=== PATIENT | female | born 1980 | race Two or more races ===

== ENCOUNTER 2017-01-01 09:30 | Inpatient (IN) | payer OTHER ==
--- NOTE | ~2017-01-01 | DS ---
Unit #: [id number] #: [id number] Patient: MICHAEL BERGMAN [id number] [address] [address] [id number] I MR#: [id number] NAME: MICHAEL BERGMAN ROOM: 472 Age: 36 Sex: F Admission Date: 01/01/2017 : 1980 Discharge Date: 01/04/2017 Attending Physician: Navneet Jasso M.D. Primary Care Physician: Kaylah Medina M.D. DISCHARGE SUMMARY DISCHARGE DIAGNOSIS Right flank and back pain with possible urinary tract infection. OPERATIVE PROCEDURE None. DISCHARGE MEDICATIONS Home medications plus Augmentin 875 mg one p.o. b.i.d. HISTORY OF PRESENT ILLNESS/HOSPITAL COURSE This is a 36-year-old black female with a history of right flank pain and right back pain radiating actually into the patient's right lower quadrant. She did have some nausea and vomiting initially but no jaundice. CT scan showed some gallstones but no evidence of cholecystitis. The patient was admitted, underwent HIDA biliary scan which was normal with no evidence of acute cholecystitis. Urology saw the patient because it felt like that she could possibly have urinary tract infection due to her back pain. Urinalysis and C and S were obtained but the final results have not come in except it did show some white blood cells in the urine. The patient has gotten better on IV antibiotics. A repeat CT scan with contrast did not show any evidence of any significant renal disease or GI disease at present. Patient at this time is improved on IV antibiotics. She is tolerating a regular diet. She will be discharged to be followed in the office on an as needed basis. I will wait upon discharge until the urologist to see the patient for further instructions. Dictated by... Karlee Chris/whitley TD: 01/05/2017 11:08 JOB #: [id number] Unit #: [id number] #: [id number] Patient: MICHAEL BERGMAN DISCHARGE SUMMARY Page 1 of 1 X Eduardo Lucas MD X DISCHARGE SUMMARY
--- NOTE | ~2017-01-01 | NM21 ---
[facility] A Service of [facility] RADIOLOGY TEXT RESULTS PATIENT: MICHAEL BERGMAN LOCATION: [place] [address]- : [birth year] UNIT #: [id number] AGE: [address]: Navneet Jasso MD SEX: F ORDER DR: [id number] [facility] [address] [place], [place] [address] [id number] I MR#: [id number] Acc #: [id number] NAME: MICHAEL BERGMAN : 1980 SEX: F STUDY DATE/TIME: 01/01/2017 12:42 UNIT: [facility] ROOM: [facility] STUDY DESCRIPTION: NM Hepatobiliary W GB Attending Physician: Navneet Jasso M.D. Ordering Physician: Navneet Jasso M.D. Primary Care Physician: Kaylah Medina M.D. MEDICAL IMAGING REPORT This report is preliminary unless electronic signature is present EXAM Hepatobiliary study HISTORY Back pain, right upper quadrant pain for a month which is worsening with nausea and vomiting. FINDINGS Patient was given 6.89 mCi of Tc 99m Choletec. There is prompt visualization of the gallbladder liver and small bowel and study was stopped at 60 minutes. IMPRESSION Normal hepatobiliary study. Dictated by... Ezra Luna M.D. THIS IS AN ELECTRONICALLY VERIFIED REPORT Ezra Luna M.D. at 01/01/2017 3:55 PM LARRY/stas TD: 01/01/2017 14:38 JOB #: [id number] MEDICAL IMAGING REPORT Page 1 of 1 COPY
--- NOTE | ~2017-01-01 | CT2 ---
[facility] A Service of [facility] RADIOLOGY TEXT RESULTS PATIENT: MICHAEL BERGMAN LOCATION: [facility]10-03 : [birth year] UNIT #: [id number] AGE: [address]: Navneet Jasso MD SEX: F ORDER DR: [id number] [facility] [address] [facility] [place], [place] [address] [id number] I MR#: [id number] Acc #: [id number] NAME: MICHAEL BERGMAN : 1980 SEX: F STUDY DATE/TIME: 01/02/2017 11:42 UNIT: [facility] ROOM: [facility] STUDY DESCRIPTION: CT Abd and Pelv W Cont Attending Physician: Navneet Jasso M.D. Ordering Physician: Kleber Roe III, M.D. Primary Care Physician: Kaylah Medina M.D. MEDICAL IMAGING REPORT This report is preliminary unless electronic signature is present EXAM CT abdomen and pelvis with contrast. INDICATIONS Right flank pain for the past 5-6 days with fever. PROCEDURE Contrast-enhanced CT of the abdomen and pelvis. COMPARISON 12/27/[address] exam was performed with one or more of the following radiation dose reduction techniques: automatic exposure control, adjustment of mA and/or kV according to patient size, and iterative reconstruction. FINDINGS Included lung bases are clear. The liver, spleen, kidneys, adrenal gland, pancreas unremarkable. There is a 5 mm calculus in the gallbladder. No evidence for active inflammation. The bowel loops are nondilated. There is moderate colonic stool burden. Appendix is nondilated. PELVIS WITH CONTRAST: No pelvic mass or fluid. No aggressive appearing bone lesion. IMPRESSION No definite acute findings. Cholelithiasis. No definite CT evidence for active inflammation. If there is ongoing concern for acute cholecystitis or right upper quadrant [facility] A Service [facility] RADIOLOGY TEXT RESULTS PATIENT: MICHAEL BERGMAN LOCATION: [facility] : [birth year] UNIT #: [id number] AGE: [address]: Navneet Jasso MD SEX: F ORDER DR: ultrasound may be helpful. Moderate colonic stool burden. Dictated by... Dm Abarca M.D. THIS IS AN ELECTRONICALLY VERIFIED REPORT Dm Abarca M.D. at 01/03/2017 7:23 AM JUAN MIGUEL/cristi TD: 01/02/2017 15:09 JOB #: [id number] MEDICAL IMAGING REPORT Page 1 of 1 COPY
--- NOTE | ~2017-01-01 | CO ---
Unit #: [id number] #: [id number] Patient: MICHAEL BERGMAN [id number] [address] [place], [place] [address] [id number] I MR#: [id number] NAME: MICHAEL BERGMAN ROOM: 472 Age: 36 Sex: F Admission Date: 01/01/2017 : 1980 Attending Physician: Navneet Jasso M.D. Primary Care Physician: Kaylah Medina M.D. Consultation Date: 01/01/2017 CONSULTATION REPORT REASON FOR CONSULTATION Right flank pain. HISTORY OF PRESENT ILLNESS The patient is a 36-year-old female who has a 5-6 day history of right flank pain. She states the severity is 10 out of 10. Nothing relieves the pain. It is associated with nausea and vomiting as well as fever to 102 per the patient's report. It is associated with nausea and vomiting as well as a fever to 102 per the patient's report. She denies gross hematuria. She denies dysuria. She was admitted directly from Dr. Jasso's office for further management. PAST MEDICAL HISTORY Hypertension. PAST SURGICAL HISTORY None. ALLERGIES No known drug allergies. HOME MEDICATIONS Amlodipine. REVIEW OF SYSTEMS A 12-point review of systems was performed and was positive for headaches, nausea, vomiting and fevers. PHYSICAL EXAMINATION GENERAL: Well-developed female in no acute distress. VITALS: Temperature reported at home was 102, temperature here is 98.2. Vital signs stable. HEENT: Normocephalic, atraumatic. NECK: Supple. No lymphadenopathy. LUNGS: The patient has normal inspiratory rise. She is breathing without difficulty. HEART: Regular rate and rhythm. Radial pulses are 2+ bilaterally. ABDOMEN: Soft and nondistended. There is right CVA tenderness. There is no rebound. There is no guarding. EXTREMITIES: She has no clubbing, cyanosis or edema. MUSCULOSKELETAL: She is moving all extremities well. NEUROLOGIC: She is alert and oriented times four. DIAGNOSTIC STUDIES Unit #: [id number] #: [id number] Patient: MICHAEL BERGMAN IMAGING: Noncontrasted CT scan of the abdomen and pelvis from 12/27/2016 was independently reviewed. There is chololithiasis. There is no hydronephrosis. There is no nephrolithiasis. LABORATORY: Pending. ASSESSMENT Right flank pain. PLAN We will check a urinalysis and a urine culture. We will follow along with workup for cholecystitis as well. We appreciate the opportunity to participate in her care. Dictated by... Rogelio Mendiola M.D. RACHELE/gz TD: 01/01/2017 14:03 JOB #: [id number] CONSULTATION REPORT Page 1 of 1 X Rogelio Mendiola MD X CONSULTATION REPORT
--- NOTE | ~2017-01-01 | US6 ---
[facility] A Service of [facility] & [facility] RADIOLOGY TEXT RESULTS PATIENT: MICHAEL BERGMAN LOCATION: [facility] 472-01 : [birth year] UNIT #: [id number] AGE: [address]: Navneet Jasso MD SEX: F ORDER DR: [id number] [facility] [address] [facility] [address]. [place], [place] [address] [id number] I MR#: [id number] Acc #: [id number] NAME: MICHAEL BERGMAN : 1980 SEX: F STUDY DATE/TIME: 01/01/2017 12:02 UNIT: [facility] ROOM: [facility] STUDY DESCRIPTION: US Abdominal Limited Attending Physician: Navneet Jasso M.D. Ordering Physician: Navneet Jasso M.D. Primary Care Physician: Kaylah Medina M.D. MEDICAL IMAGING REPORT This report is preliminary unless electronic signature is present EXAM Right upper quadrant ultrasound. HISTORY Abdominal pain. Abdominal pain and nausea and vomiting for 1 month. TECHNIQUE Real time ultrasonography of the right upper quadrant performed. COMPARISON CT abdomen and pelvis 12/27/2016. FINDINGS Pancreas unremarkable in visualized extent. Some portions of pancreatic tail obscured by bowel gas artifact. Pancreas appeared normal on prior CT. The liver measures 13.4 cm in craniocaudal extent. It is normal in size, contour, and echotexture. Portal vein is patent. The hepatic veins and inferior vena cava appear grossly patent. Gallbladder is not pathologically dilated. Shadowing gallstones are present. No pericholecystic fluid or gallbladder wall thickening. Gallbladder wall measures about 1.6 mm in thickness. No intra or extrahepatic biliary ductal dilatation. Common bile duct measures about 1.3 mm in diameter. Right kidney measures 12.2 cm in greatest length. No hydronephrosis or nephrolithiasis. No cystic or solid mass lesion. No perinephric fluid collection. IMPRESSION 1. Nonobstructing gallstones in otherwise unremarkable gallbladder. No sonographic findings of cholecystitis. 2. Liver normal in appearance. 3. No biliary ductal dilatation. 4. Right kidney normal in appearance. 5. Visualized pancreas unremarkable. Some portions obscured by bowel STS. [facility] A Service of [facility] & [facility] RADIOLOGY TEXT RESULTS PATIENT: MICHAEL BERGMAN LOCATION: [facility] 472-01 : [birth year] UNIT #: [id number] AGE: [address]: Navneet Jasso MD SEX: F ORDER DR: gas artifact. Pancreas appeared normal on CT examination December 27, 2016. Dictated by... Jhonny Rodriguez M.D. THIS IS AN ELECTRONICALLY VERIFIED REPORT Jhonny Rodriguez M.D. at 01/02/2017 6:26 PM MIRIAM/kathy TD: 01/01/2017 13:51 JOB #: [id number] MEDICAL IMAGING REPORT Page 1 of 1 COPY
[2017-01-01] MEDS ORDERED: NORVASC10 MG PO (11:35)
[2017-01-01] MEDS ORDERED: ATORVASTATIN CA20 MG PO (11:35)
[2017-01-01] MEDS ORDERED: HYDROCHLOROTHIA25 MG PO (11:36)
[2017-01-01] MEDS ORDERED: PROPRANOLOL HCL20 MG PO (11:38)
[2017-01-01 16:39] LABS: HEMOGLOBIN 12.6 gm/dL (12.0-16.0); MEAN CELL VOLUME 94.1 FL (83-96); MEAN CORPUSCULAR HEMOGLOBIN 31.3 PG (28-34); MEAN CORPUSCULAR HGB CONC 33.2 g/dL (30-36); MEAN PLATELET VOLUME 8.5 FL (6.5-11.5); RED BLOOD COUNT 4.03 X10e (3.90-5.30); RED CELL DISTRIBUTION WIDTH 12.9 % (11.0-15.5)
[2017-01-01 17:06] LABS: BUN/CREATININE RATIO 16.66; CALCIUM SERUM 8.6 mg/dL (8.4-10.2); CREATININE SERUM 0.6 mg/dL (0.6-1.4); GLOM FILT RATE Estimated 118.1 mL/min (>60); POTASSIUM 3.1 mmol/L (3.5-5.1)
[2017-01-02 03:31] LABS: URINE APPEARANCE CLEAR; URINE BILIRUBIN NEG (NEG); URINE BLOOD NEG (NEG); URINE COLOR YELLOW; URINE GLUCOSE NEG (NEG); URINE KETONE 1+ (NEG); URINE LEUKOCYTE ESTERASE TRACE (NEG); URINE NITRATE NEG (NEG); URINE PROTEIN NEG (NEG); URINE SPECIFIC GRAVITY 1.027 (1.003-1.035)
[2017-01-02 03:33] LABS: URINE BACTERIA AUWI 1+ (NEGATIVE); URINE SQUAMOUS EPITHELIAL CELL OCC /[HPF]
[2017-01-03 03:11] LABS: HEMATOCRIT 37.4 % (35.0-45.0); HEMOGLOBIN 12.3 gm/dL (12.0-16.0); MEAN CELL VOLUME 95.5 FL (83-96); MEAN CORPUSCULAR HEMOGLOBIN 31.4 PG (28-34); MEAN CORPUSCULAR HGB CONC 32.9 g/dL (30-36); MEAN PLATELET VOLUME 8.7 FL (6.5-11.5); RED BLOOD COUNT 3.91 X10e (3.90-5.30); RED CELL DISTRIBUTION WIDTH 13.4 % (11.0-15.5); WHITE BLOOD COUNT 4.2 X10e3 (4.0-10.5)
[2017-01-03 03:37] LABS: ALBUMIN SERUM 3.5 g/dL (3.5-5.0); BILIRUBIN,TOTAL 0.7 mg/dL (0.2-2.0); BUN/CREATININE RATIO 11.66; CALCIUM SERUM 8.4 mg/dL (8.4-10.2); CREATININE SERUM 0.6 mg/dL (0.6-1.4); GLOM FILT RATE Estimated 118.1 mL/min (>60); POTASSIUM 3.8 mmol/L (3.5-5.1); PROTEIN TOTAL SERUM 6.5 g/dL (6.0-8.3)
[2017-01-04] MEDS ORDERED: AUGMENTIN PO (14:47)
== END 2017-01-04 15:09 | disposition home or self-care (01) | DRG 392 ==
LOC: C4C 09:30
PROVIDERS: Surgery; Urology
DX: R10.31 Right lower quadrant pain (principal); I10 Essential (primary) hypertension; N39.0 Urinary tract infection, site not specified; K80.20 Calculus of gallbladder without cholecystitis without obstruction; M54.9 Dorsalgia, unspecified
CPT/HCPCS: 74177; 76705; 78226; 80053; 81003; 85027; 87086; A9537; C9113; J1650; J2270; J2543; J2550; Q9967